=== PATIENT | female | born 1990 | race Caucasian/White ===

== ENCOUNTER → 2017-01-22 23:28 | Emergency (ER) | payer MEDICARE, OTHER ==
[~2017-01-22 23:28] MED LIST: ABILIFY; ABILIFY20 MG PO; ACETAMINOPHEN650 M1 PO; ALBUTEROL17 GM INH; ALBUTEROL20 ml INH; AMOXICILLIN PO; AMOXICILLIN875 MG PO; ANTIVERT PO; AZITHROMYCIN250 MG PO; BACTRIM DS TABL1 TA1 PO; BENTYL10 MG PO; BENZONATATE PO; CELEXA; CELEXA10 MG PO; CELEXA20 M1 PO; CIPRO PO; CITALOPRAM HBR40 MG PO; CLARITIN10 M1 PO; CLOTRIMAZOLE15 GM TP; CORTISPORI10 ML SUSP AD; COUMADIN2.5 MG PO; CYMBALTA PO; DEPAKOTE ER250 MG PO; DEPAKOTE PO; DESYREL50 MG PO; DICLOFENAC PO; DIFLUCAN PO; DURATUSS PO; FLAGYL PO; FLEXERIL PO; FLEXERIL10 M1 PO; FLONASE16 GM; HYDROCODON-ACE1 EAC9 PO; IBUPROFEN800 MG PO; INHALER; KEPPRA500 M2 PO; LORTAB 5-325 M1 EACH PO; MACROBID100 MG PO; MED FOR DEPRESSION; MEDI-MECLIZINE25 M1 PO; MELOXICAM15 MG PO; MORGIDOX100 MG PO; MOTRIN600 MG PO; NAPROSYN-EC500 M1 PO; NAPROSYN500 MG PO; NORCO 5/325 TAB1 TAB PO; PATIENT'S PHARMACY; PEN-VEE K PO; PENICILLIN PO; PHENERGAN PO; PHENERGAN PR; PHENERGAN25 M1 PO; PHENERGAN25 MG PO; PREDNISONE PO; PYRIDIUM PO; TALADINE150 MG PO; TAMIFLU75 M1 PO; TESSALON200 MG PO; TRAMADOL HCL50 M1 PO; TRILEPTAL PO; TRILEPTAL300 MG PO; TYLENOL #3 PO; ULTRAM PO; VICODIN 5/1 TAB 5/50 PO; VICODIN PO; VISTARIL PO; VOLTAREN75 MG PO; ZITHROMAX PO; ZITHROMAX1 G/PKT PO; ZOFRAN ODT4 MG PO; ZOFRAN ODT4 MG/UDTAB PO; ZOFRAN PO; ZYRTEC10 M2 PO; [UNRECOGNIZED DRUG - OTHER] PO
== END | disposition left against medical advice (07) ==
LOC: CED 23:28
DX: Z53.21 Procedure and treatment not carried out due to patient leaving prior to being seen by health care provider (principal)

== ENCOUNTER 2017-02-23 23:59 | Emergency (ER) | payer MEDICARE, OTHER ==
[~2017-02-23 23:59] MED LIST changes: -CELEXA20 M1 PO; -KEPPRA500 M2 PO; -PATIENT'S PHARMACY; -TALADINE150 MG PO
[2017-02-24 00:43] LABS: BASOPHIL% 0.4 % (0-2.5); EOSINOPHIL# 0.2 X10e3 (0-0.7); EOSINOPHIL% 1.4 % (0.0-7.0); HEMATOCRIT 29.7 % (35.0-45.0); HEMOGLOBIN 10.2 gm/dL (12.0-16.0); LYMPHOCYTE# 2.6 X10e3 (1.0-3.5); LYMPHOCYTE% 21.4 % (17.0-45.0); MEAN CELL VOLUME 92.9 FL (83-96); MEAN CORPUSCULAR HEMOGLOBIN 31.9 PG (28-34); MEAN CORPUSCULAR HGB CONC 34.4 g/dL (30-36); MEAN PLATELET VOLUME 8.6 FL (6.5-11.5); MONOCYTE# 0.8 X10e3 (0-1.0); MONOCYTE% 6.3 % (3.0-12.0); NEUTROPHIL# 8.6 X10e3 (1.5-7.1); NEUTROPHIL% 70.5 % (40-75); PLATELET COUNT 192 X10e3 (140-420); RED CELL DISTRIBUTION WIDTH 12.9 % (11.0-15.5); WHITE BLOOD COUNT 12.2 X10e3 (4.0-10.5)
[2017-02-24 00:48] LABS: URINE SOURCE CLEAN CATCH
[2017-02-24 00:52] LABS: DIFF IND NO
[2017-02-24 00:54] LABS: URINE APPEARANCE CLEAR; URINE BILIRUBIN NEG (NEG); URINE BLOOD NEG (NEG); URINE COLOR YELLOW; URINE GLUCOSE NEG (NEG); URINE KETONE NEG (NEG); URINE LEUKOCYTE ESTERASE TRACE (NEG); URINE NITRATE NEG (NEG); URINE PROTEIN NEG (NEG); URINE SPECIFIC GRAVITY 1.011 (1.003-1.035)
[2017-02-24 00:57] LABS: U HYALINE CASTS AUWI 0-2 /[LPF]; URINE BACTERIA AUWI NEG (NEGATIVE); URINE SQUAMOUS EPITHELIAL CELL OCC /[HPF]; UWBCS1 AUWI 0-2 (0-5)
[2017-02-24 01:00] LABS: CULTURE INDICATED? NO
[2017-02-24 01:04] LABS: AMPHETAMINE NEG (NEG); BARBITURATES NEG (NEG); BENZODIAZEPINES NEG (NEG); COCAINE NEG (NEG); MARIJUANA NEG (NEG); OPIATES NEG (NEG); TRICYCLIC ANTIDEPRESSANTS NEG (NEG); U METHADONE NEG (NEG)
[2017-02-24 01:07] LABS: BLOOD UREA NITROGEN <5 mg/dL (9-23); CALCIUM SERUM 8.1 mg/dL (8.4-10.2); CARBON DIOXIDE 24 mmol/L (22-31); CHLORIDE 106 mmol/L (100-111); CREATININE SERUM 0.4 mg/dL (0.6-1.4); GLOM FILT RATE Estimated 143.8 mL/min (>60); GLUCOSE FASTING 82 mg/dL (70-110); POTASSIUM 3.4 mmol/L (3.5-5.1); SODIUM 136 mmol/L (135-145)
== END 2017-02-24 03:13 | disposition home or self-care (01) ==
LOC: CED 23:59
PROVIDERS: Emergency Medicine
DX: G40.802 Other epilepsy, not intractable, without status epilepticus (principal); F17.210 Nicotine dependence, cigarettes, uncomplicated; Z88.5 Allergy status to narcotic agent; Z88.8 Allergy status to other drugs, medicaments and biological substances
CPT/HCPCS: 36415; 80048; 80307; 81003; 82947; 84703; 85025; 87651; 96360; 99284

== ENCOUNTER 2017-02-24 19:16 | Emergency (ER) | payer MEDICARE, OTHER | END 2017-02-24 19:20 | disposition home or self-care (01) | LOC: CED 19:16 | DX: O99.89 Other specified diseases and conditions complicating pregnancy, childbirth and the puerperium (principal); R56.9 Unspecified convulsions; F31.9 Bipolar disorder, unspecified; F41.9 Anxiety disorder, unspecified; I10 Essential (primary) hypertension; J45.909 Unspecified asthma, uncomplicated; Z88.5 Allergy status to narcotic agent; Z88.8 Allergy status to other drugs, medicaments and biological substances | CPT/HCPCS: 84703; 99283 ==

== ENCOUNTER 2017-03-01 23:59 | Emergency (ER) | payer MEDICARE, OTHER ==
--- NOTE | ~2017-03-01 | EKG ---
PATIENT: JULIANA WILLIAMSON UNIT #: [id number] Ventricular Rate: 78 BPM Atrial Rate: 78 BPM P-R Interval: 126 ms QRS Duration: 76 ms Q-T Interval: 416 ms QTC Calculation(Bezet): 474 ms P [place]: 52 degrees Calculated R [place]: 37 degrees Calculated T [place]: 26 degrees Diagnosis Line: Normal sinus rhythm Diagnosis Line: Normal ECG Diagnosis Line: When compared with ECG of 12-OCT-2016 20:43, Diagnosis Line: No significant change was found Diagnosis Line: Confirmed by ESTEPHANIA ARTHUR MD ([id number]) on Diagnosis Line: 03/02/2017 10:21:17 PM INTERPRETING : JM
--- NOTE | ~2017-03-01 | ER ---
Unit #: [id number] #: [id number] Patient: JULIANA WILLIAMSON [id number] [place], [place] [address] [id number] MR#: [id number] NAME: JULIANA WILLIAMSON. ROOM: Sex: F Age: 26 : 1990 Service Date: 03/01/2017 Attending Physician: Jorje Guzmán M.D. Primary Care Physician: Prosper Thomas M.D. EMERGENCY DEPT PHYSICIAN NOTE DATE OF SERVICE 03/01-03/02/17 Please see the written T sheet for the full details of the encounter. Ms. Williamson is a 25-year-old woman with a history of pseudoseizures, syncope, bipolar disorder, depression, anxiety and mild mental retardation who is seen frequently at our facility and other facilities [facility], usually for some variation of a possible seizure-like event or syncopal episode. In fact, the patient has been seen at our facility on 02/23 and 02/24 for reported seizures. On both occasions, labs were unremarkable and the patient had no observed epileptic events while here in the emergency department. The patient's care has recently been complicated by . The patient is receiving routine care from Dr. Arndt [facility]. On the patient's most recent visit for a reported seizure, on 02/24, one of the other emergency department physicians contacted the patient's OB and discussed the case with him. The OB was very familiar with this patient and expressed concern that he receives almost daily phone calls from various ERs throughout the city for a variety of complaints. He always encourages the patient to call him first and has been following her closely through her . After this visit, again, the patient was encouraged to maintain close followup with the OB for monitoring of this , as well as followup with Neurology. Dr. Arndt indicated that the patient does have a scheduled appointment with Neurology to evaluate her further for these events to determine what component, if any, is due to epileptic seizures as opposed to nonepileptic event. I evaluated the patient tonight for a transient loss of consciousness, initially called to EMS as a syncopal event. When I questioned the patient about this event, she was reportedly amnestic and did not recall what happened. During our interview, she had several episodes where she famed unresponsiveness but wad quickly redirected with voice and/or gentle touch to redirect her to continue the conversation. At no point did she actually lose consciousness or was observed to have anything that resembled seizure-like activity. I again expressed concerned to the patient about her frequent and varied ER visits for a variety of somatic complaints and encouraged her to maintain close followup with her [facility]. The patient stated that she had been in contact with her [facility] but had also been to multiple ERs even since the last time she had been seen by us on the . Records were obtained from [facility] when the patient was seen yesterday for cough and what was deemed to be acute bronchitis. All laboratory work and an x-ray were performed and negative and, again, at [facility] the patient was encouraged to keep close followup with her [facility] Unit #: [id number] #: [id number] Patient: JULIANA WILLIAMSON for continued care. As all of her lab work tonight is normal and the patient has been observed on the monitor with no abnormal events, she will again be discharged home to continue her prescribed seizure medications and to continue her routine care as well as her scheduled followup with Neurology for her current issues. Dictated by... Cipriano Weinstein/gwendolyn TD: 03/02/2017 06:03 JOB #: [id number] EMERGENCY DEPT PHYSICIAN NOTE Page 1 of 1 X Jorje Guzmán MD X EMERGENCY DEPARTMENT REPORT
[2017-03-01 23:45] LABS: URINE SOURCE CLEAN CATCH
[2017-03-01 23:48] LABS: BASOPHIL# 0.1 X10e3 (0-0.3); BASOPHIL% 0.7 % (0-2.5); EOSINOPHIL% 0.1 % (0.0-7.0); HEMATOCRIT 32.1 % (35.0-45.0); HEMOGLOBIN 11.1 gm/dL (12.0-16.0); LYMPHOCYTE# 1.7 X10e3 (1.0-3.5); LYMPHOCYTE% 11.2 % (17.0-45.0); MEAN CELL VOLUME 92.5 FL (83-96); MEAN CORPUSCULAR HGB CONC 34.6 g/dL (30-36); MEAN PLATELET VOLUME 8.3 FL (6.5-11.5); MONOCYTE# 0.4 X10e3 (0-1.0); MONOCYTE% 2.9 % (3.0-12.0); NEUTROPHIL# 12.8 X10e3 (1.5-7.1); NEUTROPHIL% 85.1 % (40-75); PLATELET COUNT 231 X10e3 (140-420); RED BLOOD COUNT 3.47 X10e (3.90-5.30); RED CELL DISTRIBUTION WIDTH 12.8 % (11.0-15.5)
[2017-03-01 23:50] LABS: DIFF IND NO
[2017-03-01 23:51] LABS: URINE APPEARANCE CLOUDY; URINE BILIRUBIN NEG (NEG); URINE BLOOD NEG (NEG); URINE COLOR DK YELLOW; URINE GLUCOSE NEG (NEG); URINE KETONE NEG (NEG); URINE LEUKOCYTE ESTERASE 2+ (NEG); URINE NITRATE NEG (NEG); URINE PROTEIN NEG (NEG); URINE SPECIFIC GRAVITY 1.027 (1.003-1.035)
[2017-03-01 23:53] LABS: CULTURE INDICATED? YES; URINE BACTERIA AUWI 3+ (NEGATIVE); URINE SQUAMOUS EPITHELIAL CELL MOD /[HPF]; UWBCS1 AUWI 25-50 (0-5)
[2017-03-02 00:08] LABS: CALCIUM SERUM 8.8 mg/dL (8.4-10.2); CREATININE SERUM 0.6 mg/dL (0.6-1.4); GLOM FILT RATE Estimated 125.8 mL/min (>60); POTASSIUM 3.8 mmol/L (3.5-5.1)
[2017-03-02 00:11] LABS: URINE CRYSTALS CALCIUM OXALATE /[HPF]
== END 2017-03-02 01:05 | disposition home or self-care (01) ==
LOC: CED 23:59
PROVIDERS: Emergency Medicine
DX: R55 Syncope and collapse (principal); N30.00 Acute cystitis without hematuria; J45.909 Unspecified asthma, uncomplicated; F32.9 Major depressive disorder, single episode, unspecified; G40.909 Epilepsy, unspecified, not intractable, without status epilepticus; F17.200 Nicotine dependence, unspecified, uncomplicated; Z88.6 Allergy status to analgesic agent; Z88.8 Allergy status to other drugs, medicaments and biological substances
CPT/HCPCS: 36415; 80048; 81003; 85025; 87086; 93005; 99283

== ENCOUNTER 2017-03-13 02:03 | Emergency (ER) | payer MEDICARE, OTHER ==
[2017-03-13 02:06] LABS: URINE APPEARANCE CLEAR; URINE BILIRUBIN NEG (NEG); URINE BLOOD NEG (NEG); URINE COLOR YELLOW; URINE GLUCOSE NEG (NEG); URINE KETONE NEG (NEG); URINE LEUKOCYTE ESTERASE 1+ (NEG); URINE NITRATE NEG (NEG); URINE PROTEIN NEG (NEG); URINE SPECIFIC GRAVITY 1.006 (1.003-1.035)
[2017-03-13 02:08] LABS: CULTURE INDICATED? YES; URBCS1 AUWI 0-2 /[HPF] (0-2); URINE BACTERIA AUWI 1+ (NEGATIVE); URINE SQUAMOUS EPITHELIAL CELL FEW /[HPF]
== END 2017-03-13 02:45 | disposition home or self-care (01) ==
LOC: CED 02:03
PROVIDERS: Nurse Practitioner Family
DX: O99.350 Diseases of the nervous system complicating pregnancy, unspecified trimester (principal); O98.819 Other maternal infectious and parasitic diseases complicating pregnancy, unspecified trimester; O23.40 Unspecified infection of urinary tract in pregnancy, unspecified trimester; J45.909 Unspecified asthma, uncomplicated; Z86.718 Personal history of other venous thrombosis and embolism; O99.330 Smoking (tobacco) complicating pregnancy, unspecified trimester; F17.210 Nicotine dependence, cigarettes, uncomplicated; Z88.8 Allergy status to other drugs, medicaments and biological substances
CPT/HCPCS: 81003; 87086; 99284

== ENCOUNTER 2017-03-19 03:12 | Emergency (ER) | payer MEDICARE, OTHER ==
--- NOTE | ~2017-03-19 | EKG ---
PATIENT: JULIANA WILLIAMSON UNIT #: [id number] Ventricular Rate: 80 BPM Atrial Rate: 80 BPM P-R Interval: 128 ms QRS Duration: 76 ms Q-T Interval: 400 ms QTC Calculation(Bezet): 461 ms P [place]: 43 degrees Calculated R [place]: 22 degrees Calculated T [place]: 10 degrees Diagnosis Line: Normal sinus rhythm Diagnosis Line: Normal ECG Diagnosis Line: When compared with ECG of 02-MAR-2017 00:01, Diagnosis Line: No significant change was found Diagnosis Line: Confirmed by ELMO MELO MD ([id number]) on 03/19/2017 Diagnosis Line: 8:09:10 PM INTERPRETING MD: LORIE ALEJO
[2017-03-19 05:13] LABS: URINE SOURCE CLEAN CATCH
[2017-03-19 05:22] LABS: BASOPHIL# 0.1 X10e3 (0-0.3); BASOPHIL% 0.4 % (0-2.5); EOSINOPHIL# 0.1 X10e3 (0-0.7); HEMATOCRIT 31.9 % (35.0-45.0); HEMOGLOBIN 11.2 gm/dL (12.0-16.0); LYMPHOCYTE# 3.1 X10e3 (1.0-3.5); LYMPHOCYTE% 22.4 % (17.0-45.0); MEAN CELL VOLUME 93.9 FL (83-96); MEAN CORPUSCULAR HEMOGLOBIN 32.9 PG (28-34); MEAN PLATELET VOLUME 8.3 FL (6.5-11.5); MONOCYTE# 0.8 X10e3 (0-1.0); NEUTROPHIL# 9.7 X10e3 (1.5-7.1); NEUTROPHIL% 70.2 % (40-75); PLATELET COUNT 203 X10e3 (140-420); RED CELL DISTRIBUTION WIDTH 12.5 % (11.0-15.5); WHITE BLOOD COUNT 13.7 X10e3 (4.0-10.5)
[2017-03-19 05:34] LABS: DIFF IND NO
[2017-03-19 05:41] LABS: URINE APPEARANCE CLOUDY; URINE BILIRUBIN NEG (NEG); URINE BLOOD NEG (NEG); URINE COLOR DK YELLOW; URINE GLUCOSE NEG (NEG); URINE KETONE NEG (NEG); URINE LEUKOCYTE ESTERASE 2+ (NEG); URINE NITRATE NEG (NEG); URINE PH 5.5 (5-8); URINE PROTEIN NEG (NEG); URINE SPECIFIC GRAVITY 1.022 (1.003-1.035)
[2017-03-19 05:43] LABS: CULTURE INDICATED? YES; URINE BACTERIA AUWI 2+ (NEGATIVE); URINE SQUAMOUS EPITHELIAL CELL MOD /[HPF]; UWBCS1 AUWI 25-50 (0-5)
[2017-03-19 05:45] LABS: ALBUMIN SERUM 2.8 g/dL (3.5-5.0); BILIRUBIN, DIRECT 0.1 mg/dL (0.0-0.2); BILIRUBIN,INDIRECT 0.5 mg/dL (0.0-0.9); BILIRUBIN,TOTAL 0.6 mg/dL (0.2-2.0); CALCIUM SERUM 8.2 mg/dL (8.4-10.2); CREATININE SERUM 0.5 mg/dL (0.6-1.4); GLOM FILT RATE Estimated 133.6 mL/min (>60); POTASSIUM 3.2 mmol/L (3.5-5.1); PROTEIN TOTAL SERUM 5.7 g/dL (6.0-8.3)
== END 2017-03-19 06:29 | disposition home or self-care (01) ==
LOC: CED 03:12
PROVIDERS: Emergency Medicine
DX: N39.0 Urinary tract infection, site not specified (principal); F31.9 Bipolar disorder, unspecified; Z88.5 Allergy status to narcotic agent; Z88.8 Allergy status to other drugs, medicaments and biological substances
CPT/HCPCS: 36415; 80048; 80076; 81003; 85025; 87086; 93005; 99284

== ENCOUNTER 2017-04-07 20:29 | Emergency (ER) | payer MEDICARE, OTHER | END 2017-04-07 23:40 | disposition home or self-care (01) | LOC: CED 20:29 | DX: Z53.21 Procedure and treatment not carried out due to patient leaving prior to being seen by health care provider (principal) ==

== ENCOUNTER 2017-05-16 23:48 | Emergency (ER) | payer MEDICARE, OTHER ==
--- NOTE | ~2017-05-16 | EKG ---
PATIENT: JULIANA WILLIAMSON UNIT #: [id number] Ventricular Rate: 83 BPM Atrial Rate: 83 BPM P-R Interval: 120 ms QRS Duration: 64 ms Q-T Interval: 376 ms QTC Calculation(Bezet): 441 ms P [place]: 53 degrees Calculated R [place]: 27 degrees Calculated T [place]: 6 degrees Diagnosis Line: Normal sinus rhythm Diagnosis Line: Normal ECG Diagnosis Line: When compared with ECG of 19-MAR-2017 05:01, Diagnosis Line: No significant change was found Diagnosis Line: Confirmed by ALESHA OCAMPO MD ([id number]) on Diagnosis Line: 05/18/2017 4:02:17 PM INTERPRETING MD: TERRENCE ALEJO
== END 2017-05-17 02:32 | disposition home or self-care (01) ==
LOC: CED 23:48
DX: K21.9 Gastro-esophageal reflux disease without esophagitis (principal); J45.909 Unspecified asthma, uncomplicated; F31.9 Bipolar disorder, unspecified; F17.200 Nicotine dependence, unspecified, uncomplicated; Z98.890 Other specified postprocedural states; Z88.5 Allergy status to narcotic agent; Z88.8 Allergy status to other drugs, medicaments and biological substances
CPT/HCPCS: 93005; 99284

== ENCOUNTER 2017-05-25 13:37 | Emergency (ER) | payer MEDICARE, OTHER ==
[~2017-05-25] VITALS: Ht 157.5 cm; Wt 99.8 kg
--- NOTE | ~2017-05-25 | EKG ---
PATIENT: JULIANA WILLIAMSON UNIT #: [id number] Ventricular Rate: 79 BPM Atrial Rate: 79 BPM P-R Interval: 116 ms QRS Duration: 68 ms Q-T Interval: 398 ms QTC Calculation(Bezet): 456 ms P [place]: 38 degrees Calculated R [place]: 27 degrees Calculated T [place]: 16 degrees Diagnosis Line: Normal sinus rhythm Diagnosis Line: Normal ECG Diagnosis Line: When compared with ECG of 16-MAY-2017 23:56, Diagnosis Line: No significant change was found Diagnosis Line: Confirmed by FRANTZ CASTAÑEDA MD ([id number]) on Diagnosis Line: 05/26/2017 8:30:33 AM INTERPRETING MD: GARRY ALEJO
[2017-05-25] MEDS ORDERED: PATIENT'S PHARMACY (14:16)
[2017-05-25] MEDS ORDERED: KEPPRA500 M2 PO (14:16)
[2017-05-25] MEDS ORDERED: TALADINE150 MG PO (14:16)
[2017-05-25] MEDS ORDERED: CELEXA20 M1 PO (14:16)
[2017-05-25 14:46] LABS: URINE SOURCE CLEAN CATCH
[2017-05-25 14:50] LABS: URINE APPEARANCE CLEAR; URINE BILIRUBIN NEG (NEG); URINE BLOOD NEG (NEG); URINE COLOR DK YELLOW; URINE GLUCOSE NEG (NEG); URINE KETONE NEG (NEG); URINE LEUKOCYTE ESTERASE 1+ (NEG); URINE NITRATE NEG (NEG); URINE PROTEIN NEG (NEG); URINE SPECIFIC GRAVITY 1.037 (1.003-1.035)
[2017-05-25 14:55] LABS: URINE BACTERIA AUWI 2+ (NEGATIVE); URINE SQUAMOUS EPITHELIAL CELL MOD /[HPF]
== END 2017-05-25 15:40 | disposition home or self-care (01) ==
LOC: CED 13:37
PROVIDERS: Emergency Medicine
DX: R53.1 Weakness (principal); R41.0 Disorientation, unspecified; F41.9 Anxiety disorder, unspecified; Z88.5 Allergy status to narcotic agent; Z88.8 Allergy status to other drugs, medicaments and biological substances
CPT/HCPCS: 81003; 82947; 93005; 99285

== ENCOUNTER 2017-05-29 21:18 | Emergency (ER) | payer MEDICARE, OTHER ==
[~2017-05-29 21:18] MED LIST changes: +CELEXA20 M1 PO; +KEPPRA500 M2 PO; +PATIENT'S PHARMACY; +TALADINE150 MG PO
== END 2017-05-29 22:25 | disposition home or self-care (01) ==
LOC: CED 21:18 → CFTX 21:18
DX: O99.613 Diseases of the digestive system complicating pregnancy, third trimester (principal); K60.2 Anal fissure, unspecified; O99.513 Diseases of the respiratory system complicating pregnancy, third trimester; J45.909 Unspecified asthma, uncomplicated; O99.333 Smoking (tobacco) complicating pregnancy, third trimester; F17.210 Nicotine dependence, cigarettes, uncomplicated; Z3A.35 35 weeks gestation of pregnancy; Z88.8 Allergy status to other drugs, medicaments and biological substances
CPT/HCPCS: 84703; 99283

== ENCOUNTER 2017-07-26 20:19 | Emergency (ER) | payer MEDICARE, OTHER ==
[2017-07-26 22:44] LABS: BASOPHIL% 0.6 % (0-2.5); EOSINOPHIL# 0.3 X10e3 (0-0.7); EOSINOPHIL% 3.5 % (0.0-7.0); HEMATOCRIT 35.2 % (35.0-45.0); HEMOGLOBIN 11.8 gm/dL (12.0-16.0); LYMPHOCYTE# 2.8 X10e3 (1.0-3.5); LYMPHOCYTE% 35.6 % (17.0-45.0); MEAN CELL VOLUME 86.7 FL (83-96); MEAN CORPUSCULAR HEMOGLOBIN 29.2 PG (28-34); MEAN CORPUSCULAR HGB CONC 33.6 g/dL (30-36); MEAN PLATELET VOLUME 8.3 FL (6.5-11.5); MONOCYTE# 0.4 X10e3 (0-1.0); MONOCYTE% 5.5 % (3.0-12.0); NEUTROPHIL# 4.2 X10e3 (1.5-7.1); NEUTROPHIL% 54.8 % (40-75); PLATELET COUNT 276 X10e3 (140-420); RED BLOOD COUNT 4.06 X10e (3.90-5.30); RED CELL DISTRIBUTION WIDTH 14.4 % (11.0-15.5); WHITE BLOOD COUNT 7.7 X10e3 (4.0-10.5)
[2017-07-26 22:47] LABS: DIFF IND NO
[2017-07-26 23:05] LABS: BUN/CREATININE RATIO 13.75; CALCIUM SERUM 8.7 mg/dL (8.4-10.2); CREATININE SERUM 0.8 mg/dL (0.6-1.4); GLOM FILT RATE Estimated 101.8 mL/min (>60); POTASSIUM 3.7 mmol/L (3.5-5.1)
== END 2017-07-26 23:46 | disposition home or self-care (01) ==
LOC: CED 20:19
PROVIDERS: Emergency Medicine
DX: N93.9 Abnormal uterine and vaginal bleeding, unspecified (principal); F41.9 Anxiety disorder, unspecified; F31.9 Bipolar disorder, unspecified; F17.200 Nicotine dependence, unspecified, uncomplicated; Z88.5 Allergy status to narcotic agent; Z79.899 Other long term (current) drug therapy
CPT/HCPCS: 36415; 80048; 85025; 96360; 99284